=== PATIENT | female | born 1950 ===

== ENCOUNTER 2018-09-15 05:53 | Inpatient (IN) | payer MEDICAID ==
--- NOTE | 2018-09-15 05:54 | C.PDOC ---
History Of Present Illness pt found outside near a tree. Pt is confused and does not know Unable to obtain any history from pt. how she got there. police present Time Seen by Provider: 09/15/18 05:54 History Per: Other (police, ems) History/Exam Limitations: clinical condition Onset/Duration Of Symptoms: Unknown Current Symptoms Are (Timing): Still Present Severity: Severe Pain Scale Rating Of: 8 Past Medical History Reviewed: Historical Data, Nursing Documentation, Vital Signs Family History: States: No Known Family Hx Review Of Systems Review Of Systems: ROS cannot be obtained secondary to pt's inabilty to answer questions. Physical Exam - Physical Exam Appears: Non-toxic Skin: Other (colf, abrasions, nose, forehead, right cheek) Head: Tenderness (mild, no crepitus) Eye(s): bilateral: Normal Inspection, EOMI Ear(s): Bilateral: Normal Nose: No Septal Hematoma Oral Mucosa: Dry Tongue: Normal Appearing Lips: Swelling, Abrasion Neck: No Step Off Deformity, Supple Chest: Symmetrical Cardiovascular: Rhythm Regular Respiratory: No Rales, No Rhonchi, No Wheezing Gastrointestinal/Abdominal: Soft, No Tenderness, No Distention Back: No CVA Tenderness Extremity: Normal ROM, Other (abrasions both knees) Extremity: Bilateral: Normal ROM Pulses: Left Dorsalis Pedis: Normal, Right Dorsalis Pedis: Normal Neurological/Psych: Other (aaox2, confused, moves all extremities) Disoriented To: Person, Place Gait: Unable To Assess ED Course And Treatment - Laboratory Results Result Diagrams: 09/15/18 06:22 09/15/18 06:22 ECG: Interpreted By Me, Viewed By Me O2 Sat by Pulse Oximetry: 98 Pulse Ox Interpretation: Normal - Radiology CXR: Interpreted by Me, Viewed By Me CXR Interpretation: No: Infiltrates, Fracture, Pnemothorax Progress Note: placed pt on a adolfo blankest as rectal temp is 91F Critical Care Time - Critical Care Note Total Time (in mins): 30 Documented critical care: time excludes all time spent performing seperately billable procedures. Disposition Counseled Patient/Family Regarding: Studies Performed, Diagnosis - Disposition Disposition Time: 07:00 Condition: FAIR - Clinical Impression Clinical Impression: Fall, Hypothermia Physician Patient Turnover Patient Signed Over To: Yadiel Mccabe Handoff Comments: pending labs, ct scans and dispo
[2018-09-15] MEDS ORDERED: Sodium Chloride 0.9% 1,000 ML IV ONE (05:58)
[2018-09-15 06:05] VITALS: BMI 28.3
[2018-09-15 06:31] LABS: BASO % 0.2 % (0.0-2.0); EOS % 0.2 % (0.0-4.0); HEMOGLOBIN 13.3 g/dL (11.0-16.0); LYMPH # 1.9 K/uL (1.0-4.3); MEAN CELL VOLUME 87.2 fL (81.0-99.0); MEAN CORPUSCULAR HEMOGLOBIN 27.4 pg (27.0-31.0); MEAN CORPUSCULAR HGB CONC 31.4 g/dL (33.0-37.0); MEAN PLATELET VOLUME 7.9 fL (7.2-11.7); MONO # 0.6 K/uL (0.0-0.8); MONO % 3.5 % (0.0-10.0); NEUT # 13.5 K/uL (1.8-7.0); NEUT % 84.1 % (50.0-75.0); RBC 4.86 Mil/uL (3.80-5.20); RED CELL DISTRIBUTION WIDTH 15.5 % (11.5-14.5); WHITE BLOOD COUNT 16.1 K/uL (4.8-10.8)
[2018-09-15 06:33] LABS: VENOUS BLOOD GAS BASE EXCESS -12.4 mmol/L (0.0-2.0); VENOUS BLOOD GAS PCO2 31 mmHg (40-60); VENOUS BLOOD GAS PO2 44 mm/Hg (30-55); VENOUS BLOOD PH 7.25 (7.32-7.43)
[2018-09-15 06:39] LABS: ALB/GLOB RATIO 1.1 (1.0-2.1); ALBUMIN 4.5 g/dL (3.5-5.0); ALT/SGPT 15 U/L (9-52); AST/SGOT 36 U/L (14-36); BLOOD UREA NITROGEN 14 mg/dL (7-17); CALCIUM 9.8 mg/dl (8.6-10.4); GFR NON-AFRICAN AMERICAN > 60; INR 1.1; LIPASE 121 U/L (23-300); PROTHROMBIN TIME 11.5 SECONDS (9.7-12.2)
--- NOTE | 2018-09-15 08:34 | CT ---
Date of service: 09/15/2018 PROCEDURE: CT HEAD WITHOUT CONTRAST. HISTORY: R/O Bleed COMPARISON: None available. TECHNIQUE: Axial computed tomography images were obtained through the head/brain without intravenous contrast. Radiation dose: Total exam DLP = 1061.42 mGy-cm. This CT exam was performed using one or more of the following dose reduction techniques: Automated exposure control, adjustment of the mA and/or kV according to patient size, and/or use of iterative reconstruction technique. FINDINGS: HEMORRHAGE: There is acute subdural hematoma along the right tentorial leaflet with maximum thickness of 0.2 centimeter. BRAIN: No mass effect or edema. Mild volume loss and [id number] chronic microvascular white matter ischemic changes are noted. VENTRICLES: The ventricles are mildly dilated. CALVARIUM: Unremarkable. PARANASAL SINUSES: Unremarkable as visualized. No significant inflammatory changes. MASTOID AIR CELLS: Unremarkable as visualized. No inflammatory changes. OTHER FINDINGS: None. IMPRESSION: Acute subdural hematoma along the right tentorial leaflet with maximum thickness of 0.2 centimeter. Mild volume loss and mild chronic microvascular white matter ischemic changes. Preliminary report contains concordant findings was submitted by [facility] Radiology.
--- NOTE | 2018-09-15 08:55 | CT ---
Date of service: 09/15/2018 PROCEDURE: CT Cervical Spine without contrast HISTORY: fall COMPARISON: None available. TECHNIQUE: Axial computed tomography images were obtained of the cervical spine without the use of intravenous contrast. Coronal and sagittal reformatted images were created and reviewed. 3D images of the cervical spine were also obtained. Radiation dose: Total exam DLP = 590.46 mGy-cm. This CT exam was performed using one or more of the following dose reduction techniques: Automated exposure control, adjustment of the mA and/or kV according to patient size, and/or use of iterative reconstruction technique. FINDINGS: VERTEBRAE: No fracture. Normal alignment. No destructive bony lesion. DISCS/SPINAL CANAL/NEURAL FORAMINA: Mild spondylosis noted at the mid and lower cervical spine more prominent at C5-C6. At C5-C6 there is osteophyte bulging disc associated with mild spinal stenosis. Mild intervertebral disc spaces narrowing noted at C5-C6 and C6-C7. PARASPINAL SOFT TISSUES: Unremarkable. OTHER FINDINGS: Small left mastoid effusion is noted. IMPRESSION: No CT evidence of acute displaced fracture or acute traumatic subluxation in the cervical spine. Mild spondylosis more prominent at C5-C6.
--- NOTE | 2018-09-15 09:22 | CT ---
Date of service: 09/15/2018 PROCEDURE: CT ORBITS WITHOUT CONTRAST. HISTORY: ? fall COMPARISON: None available. TECHNIQUE: Axial CT images of the orbits were obtained. Coronal and sagittal reformats were generated. Radiation dose: Total exam DLP = 748.24 mGy-cm. This CT exam was performed using one or more of the following dose reduction techniques: Automated exposure control, adjustment of the mA and/or kV according to patient size, and/or use of iterative reconstruction technique. FINDINGS: RIGHT ORBIT: RIGHT BONY ORBIT: Normal. RIGHT INTRAORBITAL STRUCTURES: Globe: Normal. Extraocular muscles: Normal. Post septal space: Normal. Optic Nerve: Normal. Lacrimal Apparatus: Normal. RIGHT PRESEPTAL SOFT TISSUES: Mild to moderate right periorbital soft tissue swelling and preseptal soft tissue edema and posttraumatic changes. LEFT ORBIT: LEFT BONY ORBIT: Normal. LEFT INTRAORBITAL STRUCTURES: Globe: Normal. Extraocular muscles: Normal. Post septal space: Normal Optic Nerve: Normal. . Lacrimal Apparatus: Normal. LEFT PRESEPTAL SOFT TISSUES: Normal. OTHER: Age indeterminate nasal bone fracture may be old. IMPRESSION: No evidence of orbital fracture. Right periorbital and preseptal soft tissue swelling. Preliminary report contains concordant findings was submitted by [facility] Radiology.
--- NOTE | 2018-09-15 10:27 | RAD ---
HISTORY: SOB COMPARISON: None available. TECHNIQUE: Chest, one view. FINDINGS: Examination limited by habitus and hypoinflation. Patient's chin obscures evaluation of the lung apices. LUNGS: No focal consolidation. Please note that chest x-ray has limited sensitivity for the detection of pulmonary masses. PLEURA: No significant pleural effusion identified. No definite pneumothorax . CARDIOVASCULAR: Heart size appears top normal. Atherosclerotic calcifications of the aorta. OSSEOUS STRUCTURES: Osseous demineralization. Degenerative changes. VISUALIZED UPPER ABDOMEN: Unremarkable. OTHER FINDINGS: None. IMPRESSION: No focal consolidation.
[2018-09-15 10:37] LABS: SQUAMOUS EPITHIAL < 1 /hpf (0-5); URINE BACTERIA OCC (<OCC); URINE BILIRUBIN NEGATIVE (NEGATIVE); URINE BLOOD NEGATIVE (NEGATIVE); URINE CLARITY Clear (Clear); URINE COLOR Yellow (YELLOW); URINE GLUCOSE (UA) NORMAL (Normal); URINE LEUKOCYTE ESTERASE TRACE Leu/uL (Negative); URINE PROTEIN NEGATIVE (NEGATIVE); URINE UROBILINOGEN NORMAL mg/dL (0.2-1.0)
--- NOTE | 2018-09-15 11:18 | CP.PCM.CON ---
<Kyler Bettencourt - Last Filed: 09/15/18 18:24> History of Present Illness - History of Present Illness History of Present Illness: Consult Note for ICU for Dr. Horner This is a 68 y o female with PMhx hypothyroidism, dementia, HLD, DM2 who presented to the ED brought in by police after being found outside near a tree. Pt was confused at time of ED presentation, and unable to provide further hx or ROS. Per pt's [id number] she states that pt has been living at home with pt's daughter and family, and that they were unable to find patient this am. Pt's grandson at bedside states that he woke up at 5 am this morning and noticed that pt had ran away from home. Unknown amount of time pt was outside of house before being found. States they went to police station this am to report her missing and they were told that she was being treated at [facility]. Reports pt has been living at home with them for the past 2 years, having previously lived in the [place]. Reports prior times she left home but states they usually place alarms on to notify if she tries to leave home, but that the alarms did not go off this time. Pt on exam currently denies any acute complaints except for the skin excoriations sustained on her face that she presented with on admission, unknown mechanism of injury. Unable to obtain further ROS due to pt's current mental status. Reason for ICU consult was for s ubdural hematoma. PMhx: hypothyroidism, dementia, HLD, DM2 PSurgHx: thyroidectomy < 1 y ago Allergies: PCN (unknown reaction) Home meds: reviewed as per [facility] hx: denies Soc hx: denies smoking, EtOH or illicit drug use PMD: Dr. Lou ([place]) Review of Systems - Review of Systems Systems not reviewed;Unavailable: Altered Mental Status Past Patient History - Infectious Disease Hx of Infectious Diseases: None - Past Medical History & Family History Past Medical History?: Yes - Past Social History Smoking Status: Unknown If Ever Smoked - CARDIAC Hx Hypercholesterolemia: Yes - PULMONARY Hx Respiratory Disorders: No - NEUROLOGICAL Hx Neurological Disorder: Yes Hx Alzheimer's Disease: Yes Hx Dementia: Yes - HEENT Hx HEENT Problems: No - RENAL Hx Chronic Kidney Disease: No - ENDOCRINE/METABOLIC Hx Endocrine Disorders: Yes Hx Diabetes Mellitus Type 2: Yes Hx Hypothyroidism: Yes - HEMATOLOGICAL/ONCOLOGICAL Hx Blood Disorders: No - INTEGUMENTARY Hx Dermatological Problems: No - MUSCULOSKELETAL/RHEUMATOLOGICAL Hx Musculoskeletal Disorders: No Hx Falls: Yes Hx Unsteady Gait: Yes - GASTROINTESTINAL Hx Gastrointestinal Disorders: No - GENITOURINARY/GYNECOLOGICAL Hx Genitourinary Disorders: No - PSYCHIATRIC Hx Psychophysiologic Disorder: No Hx Substance Use: No - SURGICAL HISTORY Hx Surgeries: Yes Hx Parathyroidectomy: Yes - ANESTHESIA Hx Anesthesia: Yes Hx Anesthesia Reactions: No Hx Malignant Hyperthermia: No Has any member of the family had a problem w/ anesthesia?: No Meds Allergies/Adverse Reactions: Allergies Allergy/AdvReac Type Severity Reaction Status Date / Time Penicillins Allergy Verified 09/15/18 06:40 Physical Exam - Constitutional Appears: Non-toxic, No Acute Distress - Head Exam Head Exam: ATRAUMATIC, NORMOCEPHALIC - Eye Exam Eye Exam: EOMI, Normal appearance, PERRL - ENT Exam ENT Exam: Mucous Membranes Moist - Respiratory Exam Respiratory Exam: Clear to Auscultation Bilateral, NORMAL BREATHING PATTERN. absent: Rales, Rhonchi, Wheezes - Cardiovascular Exam Cardiovascular Exam: REGULAR RHYTHM, +S1, +S2. absent: Gallop, Rubs, Systolic Murmur - GI/Abdominal Exam GI & Abdominal Exam: Normal Bowel Sounds, Soft. absent: Distended, Organomegaly, Tenderness - Extremities Exam Extremities exam: Positive for: normal capillary refill, normal inspection, pedal pulses present. Negative for: pedal edema - Neurological Exam Neurological exam: Alert Additional comments: AAOx2 - Skin Skin Exam: Dry, Intact, Warm Additional comments: Excoriations present on face, dry, no active bleeding Results - Vital Signs Recent Vital Signs: Last Vital Signs Temp 97.6 F 09/15/18 08:24 Pulse 83 09/15/18 09:25 Resp 18 09/15/18 09:25 BP 155/67 H 09/15/18 09:25 Pulse Ox 100 09/15/18 09:25 - Labs Result Diagrams: 09/15/18 06:22 09/15/18 06:22 Labs: Laboratory Results - last 24 hr 09/15/18 09/15/18 09/15/18 06:05 06:20 06:22 WBC 16.1 H RBC 4.86 Hgb 13.3 Hct 42.4 MCV 87.2 MCH 27.4 MCHC 31.4 L RDW 15.5 H Plt Count 321 MPV 7.9 Neut % (Auto) 84.1 H Lymph % (Auto) 12.0 L [place] % (Auto) 3.5 Eos % (Auto) 0.2 Baso % (Auto) 0.2 Neut # (Auto) 13.5 H Lymph # (Auto) 1.9 [place] # (Auto) 0.6 Eos # (Auto) 0.0 Baso # (Auto) 0.0 PT INR APTT pO2 44 VBG pH 7.25 L VBG pCO2 31 L VBG HCO3 14.5 VBG Total CO2 14.6 L VBG O2 Sat (Calc) 79.7 H VBG Base Excess -12.4 L VBG Potassium 2.4 L* Sodium 143.0 Chloride 121.0 H Glucose 104 Lactate 3.6 H Blood Gas Comments K value 2.4 Crit Value Called To Crit Value Called By Horace tavera Crit Value Read Back Y Blood Gas Notified Time 632 Potassium Carbon Dioxide Anion Gap BUN Creatinine Est GFR ( Amer) Est GFR (Non-Af Amer) POC Glucose (mg/dL) 164 H Random Glucose Calcium Magnesium Total Bilirubin AST ALT Alkaline Phosphatase Total Protein Albumin Globulin Albumin/Globulin Ratio Lipase Venous Blood Potassium 2.4 L* Urine Color Urine Clarity Urine pH Ur Specific [place] Urine Protein Urine Glucose (UA) Urine Ketones Urine Blood Urine Nitrate Urine Bilirubin Urine Urobilinogen Ur Leukocyte Esterase Urine WBC (Auto) Urine RBC (Auto) Ur Squamous Epith Cells Urine Bacteria 09/15/18 09/15/18 09/15/18 06:22 06:22 10:12 WBC RBC Hgb Hct MCV MCH MCHC RDW Plt Count MPV Neut % (Auto) Lymph % (Auto) [place] % (Auto) Eos % (Auto) Baso % (Auto) Neut # (Auto) Lymph # (Auto) [place] # (Auto) Eos # (Auto) Baso # (Auto) PT 11.5 INR 1.1 APTT 27 pO2 VBG pH VBG pCO2 VBG HCO3 VBG Total CO2 VBG O2 Sat (Calc) VBG Base Excess VBG Potassium Sodium 140 Chloride 104 Glucose Lactate Blood Gas Comments Crit Value Called To Crit Value Called By Crit Value Read Back Blood Gas Notified Time Potassium 4.5 Carbon Dioxide 23 Anion Gap 17 BUN 14 Creatinine 0.7 Est GFR ( Amer) > 60 Est GFR (Non-Af Amer) > 60 POC Glucose (mg/dL) Random Glucose 162 H Calcium 9.8 Magnesium 1.8 Total Bilirubin 0.5 AST 36 ALT 15 Alkaline Phosphatase 175 H Total Protein 8.4 H Albumin 4.5 Globulin 4.0 H Albumin/Globulin Ratio 1.1 Lipase 121 Venous Blood Potassium Urine Color Yellow Urine Clarity Clear Urine pH 5.0 Ur Specific [place] 1.009 Urine Protein Negative Urine Glucose (UA) Normal Urine Ketones Negative Urine Blood Negative Urine Nitrate Positive H Urine Bilirubin Negative Urine Urobilinogen Normal Ur Leukocyte Esterase Trace Urine WBC (Auto) 3 Urine RBC (Auto) 1 Ur Squamous Epith Cells < 1 Urine Bacteria Occ H Assessment & Plan - Assessment and Plan (Free Text) Assessment: This is a 68 y o female with PMhx hypothyroidism, dementia, HLD, DM2 who presented to the ED brought in by police after being found outside near a tree. Reason for ICU consult was for subdural hematoma. Plan: Neuro: -AAOx2 -CT head on admission: acute subdural hematoma along R tentorial leaflet with maximum thickness of 0.2 cm. -Repeat head CT: interval slight increased the size of the acute subdural hematoma along the R tentorial leaflet since the prior exam. Otherwise no significant interval changes -Neurosurgery consulted (Dr. Will), recs appreciated No surgical intervention recommended at this time -Neurology consulted (Dr. Penn), recs appreciated -Hx dementia, cont w/ home med Donepezil Cardio: -HR and BP wnl, pt asymptomatic, cont to monitor -C/w home med Lisinopril daily -C/w home med statin therapy -EKG on admission demonstrates NSR, possible LVH, prolonged QT -CXR on admission: no focal consolidation GI: -Diabetic diet -Protonix daily -No acute issues at this time Renal: -BUN/Cr 14/0.7, cont to monitor -Trend I's/O's ID: -Leukocytosis 16.1 -Afebrile, no tachycardia -Cont to trend, no anbx indicated at this time -Blood and urine cxs pending -CXR neg for consolidation Endo: -Hx DM2 Cont with home med Metformin ISS-med Fingersticks achs Hypoglycemic protocol A1c pending -Hx hypothyroidism s/p thyroidectomy C/w home med Synthroid TSH, free T3 and T4 pending PPX: -Protonix -SCD, pharmacologic DVT ppx contraindicated 2/2 cranial bleed -OT/PT evals ordered Pt seen, examined with, and plan discussed with Dr. Horner, attending physician. Kyler Bettencourt DO PGY-1, Tape Transfer[employer] Pager #[phone] <RajChoco nguyen - Last Filed: 09/21/18 23:08> Results - Vital Signs Recent Vital Signs: Last Vital Signs Temp 97.1 F L 09/21/18 07:00 Pulse 63 09/21/18 07:00 Resp 20 09/21/18 07:00 BP 102/61 09/21/18 07:00 Pulse Ox 97 09/21/18 07:00 - Labs Result Diagrams: 09/20/18 07:15 09/20/18 07:15 Labs: Laboratory Results - last 24 hr 09/21/18 09/21/18 07:02 11:08 POC Glucose (mg/dL) 105 108 Attending/Attestation - Attestation I have personally seen and examined this patient.: Yes I have fully participated in the care of the patient.: Yes I have reviewed all pertinent clinical information: Yes Notes (Text): 09/15/18 Today: Saturday, September 15, 2018 The Patient was seen and examined at the bedside, Medical records reviewed, and management issues were discussed and formulated with the house staff. I have reviewed all the relevant clinical, laboratory, hemodynamic, radiographic data and medications Events reviewed Pain issues, skin care, head of the bed elevation, glycemic control were addressed. Agree with above resident's assessment and treatment plans of care as transcribed in Dr. Bettencourt's note.
--- NOTE | 2018-09-15 13:56 | CP.PCM.PN ---
Subjective - Date & Time of Evaluation Date of Evaluation: 09/15/18 Time of Evaluation: 13:55 - Subjective Subjective: 68 yo female with hx dementia had fall ct this am showed small amount of blood layoring on right tent and falx repeat shows no significant change Pt will not require any surgical intervention further [place] per neurology Objective - Vital Signs/Intake and Output Vital Signs (last 24 hours): Temp Pulse Resp BP Pulse Ox 97.6 F 83 18 155/67 H 100 09/15/18 08:24 09/15/18 09:25 09/15/18 09:25 09/15/18 09:25 09/15/18 09:25 Intake and Output: 09/15/18 09/15/18 06:59 18:59 Output Total 380 Balance -380 - Labs Labs: 09/15/18 06:22 09/15/18 06:22 PT 11.5 SECONDS (9.7-12.2) 09/15/18 06:22 INR 1.1 09/15/18 06:22 APTT 27 SECONDS (21-34) 09/15/18 06:22
--- NOTE | 2018-09-15 14:23 | CT ---
Date of service: 09/15/2018 PROCEDURE: CT HEAD WITHOUT CONTRAST. HISTORY: eval for interval change COMPARISON: Comparison is made with the previous same-day exam. TECHNIQUE: Axial computed tomography images were obtained through the head/brain without intravenous contrast. Radiation dose: Total exam DLP = 998.66 mGy-cm. This CT exam was performed using one or more of the following dose reduction techniques: Automated exposure control, adjustment of the mA and/or kV according to patient size, and/or use of iterative reconstruction technique. FINDINGS: HEMORRHAGE: Interval slight increase in the size of the previously seen acute subdural hematoma along the right tentorial leaflet since the prior study. The maximum thickness of the subdural hematoma is 4 millimeter in the current exam. No evidence of other intracranial hemorrhage. BRAIN: No mass effect or edema. Mild atrophy and chronic microvascular white matter ischemic changes are again noted. VENTRICLES: Unremarkable. No hydrocephalus. CALVARIUM: Unremarkable. PARANASAL SINUSES: Unremarkable as visualized. No significant inflammatory changes. MASTOID AIR CELLS: Unremarkable as visualized. No inflammatory changes. OTHER FINDINGS: None. IMPRESSION: Interval slight increased the size of the acute subdural hematoma along the right tentorial leaflet since the prior exam. Otherwise no significant interval changes
--- NOTE | 2018-09-15 19:27 | CARD ---
APPROVED REPORT Date of service: 09/15/2018 EKG Measurement Heart [id number] <Conclusion> Normal sinus rhythm Moderate voltage criteria for LVH, may be normal variant ST & T wave abnormality, consider anterolateral ischemia Prolonged QT Abnormal ECG
--- NOTE | 2018-09-15 20:04 | CP.PCM.HP ---
Past Patient History - Infectious Disease Hx of Infectious Diseases: None - Past Medical History & Family History Past Medical History?: Yes - Past Social History Smoking Status: Unknown If Ever Smoked - CARDIAC Hx Hypercholesterolemia: Yes - PULMONARY Hx Respiratory Disorders: No - NEUROLOGICAL Hx Neurological Disorder: Yes Hx Alzheimer's Disease: Yes Hx Dementia: Yes - HEENT Hx HEENT Problems: No - RENAL Hx Chronic Kidney Disease: No - ENDOCRINE/METABOLIC Hx Endocrine Disorders: Yes Hx Diabetes Mellitus Type 2: Yes Hx Hypothyroidism: Yes - HEMATOLOGICAL/ONCOLOGICAL Hx Blood Disorders: No - INTEGUMENTARY Hx Dermatological Problems: No - MUSCULOSKELETAL/RHEUMATOLOGICAL Hx Musculoskeletal Disorders: No Hx Falls: Yes Hx Unsteady Gait: Yes - GASTROINTESTINAL Hx Gastrointestinal Disorders: No - GENITOURINARY/GYNECOLOGICAL Hx Genitourinary Disorders: No - PSYCHIATRIC Hx Psychophysiologic Disorder: No Hx Substance Use: No - SURGICAL HISTORY Hx Surgeries: Yes Hx Parathyroidectomy: Yes - ANESTHESIA Hx Anesthesia: Yes Hx Anesthesia Reactions: No Hx Malignant Hyperthermia: No Has any member of the family had a problem w/ anesthesia?: No Meds Allergies/Adverse Reactions: Allergies Allergy/AdvReac Type Severity Reaction Status Date / Time Penicillins Allergy Verified 09/15/18 06:40 Physical Exam - Constitutional Appears: Well - Head Exam Head Exam: ATRAUMATIC, NORMAL INSPECTION, NORMOCEPHALIC - Eye Exam Eye Exam: EOMI, Normal appearance, PERRL Pupil Exam: NORMAL ACCOMODATION, PERRL - ENT Exam ENT Exam: Mucous Membranes Moist, Normal Exam - Neck Exam Neck exam: Positive for: Normal Inspection - Respiratory Exam Respiratory Exam: Decreased Breath Sounds - Cardiovascular Exam Cardiovascular Exam: REGULAR RHYTHM, +S1, +S2 - GI/Abdominal Exam GI & Abdominal Exam: Diminished Bowel Sounds, Soft - Rectal Exam Rectal Exam: Deferred Results - Vital Signs Recent Vital Signs: Last Vital Signs Temp 99.4 F 09/15/18 16:00 Pulse 88 09/15/18 17:57 Resp 20 09/15/18 17:57 BP 111/39 L 09/15/18 17:57 Pulse Ox 95 09/15/18 17:57 - Labs Result Diagrams: 09/15/18 06:22 09/15/18 06:22 Labs: Laboratory Results - last 24 hr 09/15/18 09/15/18 09/15/18 06:05 06:20 06:22 WBC 16.1 H RBC 4.86 Hgb 13.3 Hct 42.4 MCV 87.2 MCH 27.4 MCHC 31.4 L RDW 15.5 H Plt Count 321 MPV 7.9 Neut % (Auto) 84.1 H Lymph % (Auto) 12.0 L [place] % (Auto) 3.5 Eos % (Auto) 0.2 Baso % (Auto) 0.2 Neut # (Auto) 13.5 H Lymph # (Auto) 1.9 [place] # (Auto) 0.6 Eos # (Auto) 0.0 Baso # (Auto) 0.0 PT INR APTT pO2 44 VBG pH 7.25 L VBG pCO2 31 L VBG HCO3 14.5 VBG Total CO2 14.6 L VBG O2 Sat (Calc) 79.7 H VBG Base Excess -12.4 L VBG Potassium 2.4 L* Sodium 143.0 Chloride 121.0 H Glucose 104 Lactate 3.6 H Blood Gas Comments K value 2.4 Crit Value Called To Crit Value Called By Horace tavera Crit Value Read Back Y Blood Gas Notified Time 632 Potassium Carbon Dioxide Anion Gap BUN Creatinine Est GFR ( Amer) Est GFR (Non-Af Amer) POC Glucose (mg/dL) 164 H Random Glucose Calcium Magnesium Total Bilirubin AST ALT Alkaline Phosphatase Total Protein Albumin Globulin Albumin/Globulin Ratio Lipase Venous Blood Potassium 2.4 L* Urine Color Urine Clarity Urine pH Ur Specific [place] Urine Protein Urine Glucose (UA) Urine Ketones Urine Blood Urine Nitrate Urine Bilirubin Urine Urobilinogen Ur Leukocyte Esterase Urine WBC (Auto) Urine RBC (Auto) Ur Squamous Epith Cells Urine Bacteria 09/15/18 09/15/18 09/15/18 06:22 06:22 10:12 WBC RBC Hgb Hct MCV MCH MCHC RDW Plt Count MPV Neut % (Auto) Lymph % (Auto) [place] % (Auto) Eos % (Auto) Baso % (Auto) Neut # (Auto) Lymph # (Auto) [place] # (Auto) Eos # (Auto) Baso # (Auto) PT 11.5 INR 1.1 APTT 27 pO2 VBG pH VBG pCO2 VBG HCO3 VBG Total CO2 VBG O2 Sat (Calc) VBG Base Excess VBG Potassium Sodium 140 Chloride 104 Glucose Lactate Blood Gas Comments Crit Value Called To Crit Value Called By Crit Value Read Back Blood Gas Notified Time Potassium 4.5 Carbon Dioxide 23 Anion Gap 17 BUN 14 Creatinine 0.7 Est GFR ( Amer) > 60 Est GFR (Non-Af Amer) > 60 POC Glucose (mg/dL) Random Glucose 162 H Calcium 9.8 Magnesium 1.8 Total Bilirubin 0.5 AST 36 ALT 15 Alkaline Phosphatase 175 H Total Protein 8.4 H Albumin 4.5 Globulin 4.0 H Albumin/Globulin Ratio 1.1 Lipase 121 Venous Blood Potassium Urine Color Yellow Urine Clarity Clear Urine pH 5.0 Ur Specific [place] 1.009 Urine Protein Negative Urine Glucose (UA) Normal Urine Ketones Negative Urine Blood Negative Urine Nitrate Positive H Urine Bilirubin Negative Urine Urobilinogen Normal Ur Leukocyte Esterase Trace Urine WBC (Auto) 3 Urine RBC (Auto) 1 Ur Squamous Epith Cells < 1 Urine Bacteria Occ H
[2018-09-15] MEDS: (Novolin R) Insulin Human Regular 100 units/ml vial SC SCH (22:43)
[2018-09-16 06:26] LABS: BASO % 0.7 % (0.0-2.0); EOS # 0.1 K/uL (0.0-0.7); EOS % 1.2 % (0.0-4.0); LYMPH # 1.9 K/uL (1.0-4.3); LYMPH % 31.7 % (20.0-40.0); MEAN CELL VOLUME 85.9 fL (81.0-99.0); MEAN CORPUSCULAR HEMOGLOBIN 27.9 pg (27.0-31.0); MEAN CORPUSCULAR HGB CONC 32.5 g/dL (33.0-37.0); MONO # 0.5 K/uL (0.0-0.8); MONO % 7.8 % (0.0-10.0); NEUT # 3.5 K/uL (1.8-7.0); NEUT % 58.6 % (50.0-75.0); RBC 4.3 Mil/uL (3.80-5.20); RED CELL DISTRIBUTION WIDTH 15.2 % (11.5-14.5); WHITE BLOOD COUNT 5.9 K/uL (4.8-10.8)
[2018-09-16 07:05] LABS: ALBUMIN 3.7 g/dL (3.5-5.0); ALT/SGPT 24 U/L (9-52); AST/SGOT 36 U/L (14-36); BLOOD UREA NITROGEN 11 mg/dL (7-17); CALCIUM 9.2 mg/dl (8.6-10.4); GFR NON-AFRICAN AMERICAN > 60
[2018-09-16] MEDS: Levothyroxine 125 MCG TAB PO SCH (08:25)
[2018-09-16] MEDS: (Novolin R) Insulin Human Regular 100 units/ml vial SC SCH ×4 (08:25→22:21)
--- NOTE | 2018-09-16 09:38 | CP.CCUPN ---
CCU Subjective - Physician Review Subjective (Free Text): ICU Progress Note for Dr. Zuniga Pt seen and examined at bedside this am. Denies any acute complaints. Unable to obtain ROS due to pt's current mental status. No acute events reported overnight by staff. Repeat CT head ordered for this am. CCU Objective - Vital Signs / Intake & Output Vital Signs (Last 4 hours): Vital Signs Temp Pulse Resp BP Pulse Ox 09/16/18 08:00 98.1 F 57 L 17 100 09/16/18 07:57 57 L 19 128/48 L 97 09/16/18 07:00 54 L 15 100 09/16/18 06:58 56 L 17 113/63 100 09/16/18 06:57 57 L 17 100 09/16/18 06:00 59 L 16 100 09/16/18 05:57 144/59 L Intake and Output (Last 8hrs): Intake & Output 09/15/18 09/16/18 09/16/18 22:59 06:59 14:59 Intake Total 290 350 120 Output Total 575 350 0 Balance -285 0 120 Intake: Intake, IV Amount 0 350 Left Antecubital 0 0 Right Forearm 0 350 Oral 290 120 Output: Urine 575 350 0 Urethral (Samson) 575 Urine, Voided 0 350 0 Other: # Voids Urine, Voided 1 - Physical Exam Head: Positive for: Atraumatic, Normocephalic, Abrasion (Abrasion noted to face around nares and forehead, no active bleeding) Pupils: Positive for: PERRL Extroacular Muscles: Positive for: EOMI Conjunctiva: Positive for: Normal Mouth: Positive for: Moist Mucous Membranes Neck: Positive for: Normal Range of Motion. Negative for: JVD, Lymphadenopathy Respiratory/Chest: Positive for: Clear to Auscultation, Good Air Exchange. Negative for: Respiratory Distress, Accessory Muscle Use, Wheezes, Rales, R etracting Cardiovascular: Positive for: Regular Rate and Rhythm, Normal S1, S2. Negative for: Murmurs, Rub, Gallop Abdomen: Positive for: Normal Bowel Sounds. Negative for: Tenderness, Distention, Mass/Organomegaly Upper Extremity: Positive for: Normal Inspection, NORMAL PULSES, Neurovascularly Intact, Capillary Refill < 2s. Negative for: Cyanosis, Edema Lower Extremity: Positive for: Normal Inspection, NORMAL PULSES, Neurovascularly Intact, Capillary Refill < 2 s. Negative for: Edema Neurological: Positive for: GCS=15, CN II-XII Intact Skin: Positive for: Warm, Dry, Normal Color Psychiatric: Positive for: Alert, Oriented x 3 - Medications Active Medications: Active Medications Generic Name Dose Route Start Last Admin Trade Name Freq PRN Reason Stop Dose Admin Donepezil HCl 10 mg 09/15/18 22:00 09/15/18 22:22 Aricept PO 10 mg HS [facility] Administration Insulin Human Regular 0 unit 09/15/18 22:00 09/16/18 08:25 Novolin R SC Not Given ACHS [facility] Protocol Levothyroxine Sodium 125 mcg 09/16/18 06:30 09/16/18 08:25 Synthroid PO 125 mcg DAILY@0630 [facility] Administration Lisinopril 2.5 mg 09/15/18 17:00 09/15/18 18:11 Zestril PO Not Given DAILY [facility] Metformin HCl 500 mg 09/15/18 17:00 Glucophage PO DIN [facility] Pantoprazole Sodium 40 mg 09/16/18 10:00 Protonix Ec Tab PO DAILY [facility] Rosuvastatin Calcium 20 mg 09/15/18 22:00 09/15/18 22:22 Crestor PO 20 mg HS [facility] Administration - Patient Studies Lab Studies: Microbiology Studies 09/15/18 07:18 Blood Culture - Preliminary Blood NO GROWTH AFTER 24 HOURS 09/15/18 07:18 Blood Culture - Preliminary Blood NO GROWTH AFTER 24 HOURS Lab Studies 09/16/18 09/16/18 09/16/18 Range/Units 06:19 06:19 06:19 WBC (4.8-10.8) K/uL RBC (3.80-5.20) Mil/uL Hgb (11.0-16.0) g/dL Hct (34.0-47.0) % MCV (81.0-99.0) fL MCH (27.0-31.0) pg MCHC (33.0-37.0) g/dL RDW (11.5-14.5) % Plt Count (130-400) K/uL MPV (7.2-11.7) fL Neut % (Auto) (50.0-75.0) % Lymph % (Auto) (20.0-40.0) % [place] % (Auto) (0.0-10.0) % Eos % (Auto) (0.0-4.0) % Baso % (Auto) (0.0-2.0) % Neut # (Auto) (1.8-7.0) K/uL Lymph # (Auto) (1.0-4.3) K/uL [place] # (Auto) (0.0-0.8) K/uL Eos # (Auto) (0.0-0.7) K/uL Baso # (Auto) (0.0-0.2) K/uL Sodium 137 (132-148) mmol/L Potassium 3.6 (3.6-5.2) mmol/L Chloride 106 (98-107) mmol/L Carbon Dioxide 27 (22-30) mmol/L Anion Gap 7 L (10-20) BUN 11 (7-17) mg/dL Creatinine 0.7 (0.7-1.2) mg/dL Est GFR ( Amer) > 60 Est GFR (Non-Af Amer) > 60 Random Glucose 106 H D (65-105) mg/dL Hemoglobin A1c 6.4 (4.2-6.5) % Calcium 9.2 (8.6-10.4) mg/dl Phosphorus 4.3 (2.5-4.5) mg/dL Magnesium 2.0 (1.6-2.3) mg/dL Total Bilirubin 0.9 (0.2-1.3) mg/dL AST 36 (14-36) U/L ALT 24 (9-52) U/L Alkaline Phosphatase 134 H D (38-126) U/L Total Protein 7.3 (6.3-8.3) g/dL Albumin 3.7 (3.5-5.0) g/dL Globulin 3.6 (2.2-3.9) gm/dL Albumin/Globulin Ratio 1.0 (1.0-2.1) Free T4 1.56 (0.78-2.19) ng/dL Free T3 pg/mL 3.33 (2.77-5.27) pg/mL TSH 3rd Generation 0.11 L (0.46-4.68) mIU/L Urine Color (YELLOW) Urine Clarity (Clear) Urine pH (5.0-8.0) Ur Specific [place] (1.003-1.030) Urine Protein (NEGATIVE) mg/dL Urine Glucose (UA) (Normal) mg/dL Urine Ketones (NEGATIVE) mg/dL Urine Blood (NEGATIVE) Urine Nitrate (NEGATIVE) Urine Bilirubin (NEGATIVE) Urine Urobilinogen (0.2-1.0) mg/dL Ur Leukocyte Esterase (Negative) [place]/uL Urine WBC (Auto) (0-5) /hpf Urine RBC (Auto) (0-3) /hpf Ur Squamous Epith Cells (0-5) /hpf Urine Bacteria (<OCC) 09/16/18 09/15/18 Range/Units 06:19 10:12 WBC 5.9 D (4.8-10.8) K/uL RBC 4.30 (3.80-5.20) Mil/uL Hgb 12.0 (11.0-16.0) g/dL Hct 36.9 (34.0-47.0) % MCV 85.9 (81.0-99.0) fL MCH 27.9 (27.0-31.0) pg MCHC 32.5 L (33.0-37.0) g/dL RDW 15.2 H (11.5-14.5) % Plt Count 253 (130-400) K/uL MPV 8.0 (7.2-11.7) fL Neut % (Auto) 58.6 (50.0-75.0) % Lymph % (Auto) 31.7 (20.0-40.0) % [place] % (Auto) 7.8 (0.0-10.0) % Eos % (Auto) 1.2 (0.0-4.0) % Baso % (Auto) 0.7 (0.0-2.0) % Neut # (Auto) 3.5 (1.8-7.0) K/uL Lymph # (Auto) 1.9 (1.0-4.3) K/uL [place] # (Auto) 0.5 (0.0-0.8) K/uL Eos # (Auto) 0.1 (0.0-0.7) K/uL Baso # (Auto) 0.0 (0.0-0.2) K/uL Sodium (132-148) mmol/L Potassium (3.6-5.2) mmol/L Chloride (98-107) mmol/L Carbon Dioxide (22-30) mmol/L Anion Gap (10-20) BUN (7-17) mg/dL Creatinine (0.7-1.2) mg/dL Est GFR ( Amer) Est GFR (Non-Af Amer) Random Glucose (65-105) mg/dL Hemoglobin A1c (4.2-6.5) % Calcium (8.6-10.4) mg/dl Phosphorus (2.5-4.5) mg/dL Magnesium (1.6-2.3) mg/dL Total Bilirubin (0.2-1.3) mg/dL AST (14-36) U/L ALT (9-52) U/L Alkaline Phosphatase (38-126) U/L Total Protein (6.3-8.3) g/dL Albumin (3.5-5.0) g/dL Globulin (2.2-3.9) gm/dL Albumin/Globulin Ratio (1.0-2.1) Free T4 (0.78-2.19) ng/dL Free T3 pg/mL (2.77-5.27) pg/mL TSH 3rd Generation (0.46-4.68) mIU/L Urine Color Yellow (YELLOW) Urine Clarity Clear (Clear) Urine pH 5.0 (5.0-8.0) Ur Specific [place] 1.009 (1.003-1.030) Urine Protein Negative (NEGATIVE) mg/dL Urine Glucose (UA) Normal (Normal) mg/dL Urine Ketones Negative (NEGATIVE) mg/dL Urine Blood Negative (NEGATIVE) Urine Nitrate Positive H (NEGATIVE) Urine Bilirubin Negative (NEGATIVE) Urine Urobilinogen Normal (0.2-1.0) mg/dL Ur Leukocyte Esterase Trace (Negative) [place]/uL Urine WBC (Auto) 3 (0-5) /hpf Urine RBC (Auto) 1 (0-3) /hpf Ur Squamous Epith Cells < 1 (0-5) /hpf Urine Bacteria Occ H (<OCC) Laboratory Results - last 24 hr 09/15/18 09/16/18 09/16/18 10:12 06:19 06:19 WBC 5.9 D RBC 4.30 Hgb 12.0 Hct 36.9 MCV 85.9 MCH 27.9 MCHC 32.5 L RDW 15.2 H Plt Count 253 MPV 8.0 Neut % (Auto) 58.6 Lymph % (Auto) 31.7 [place] % (Auto) 7.8 Eos % (Auto) 1.2 Baso % (Auto) 0.7 Neut # (Auto) 3.5 Lymph # (Auto) 1.9 [place] # (Auto) 0.5 Eos # (Auto) 0.1 Baso # (Auto) 0.0 Sodium 137 Potassium 3.6 Chloride 106 Carbon Dioxide 27 Anion Gap 7 L BUN 11 Creatinine 0.7 Est GFR ( Amer) > 60 Est GFR (Non-Af Amer) > 60 Random Glucose 106 H D Hemoglobin A1c Calcium 9.2 Phosphorus 4.3 Magnesium 2.0 Total Bilirubin 0.9 AST 36 ALT 24 Alkaline Phosphatase 134 H D Total Protein 7.3 Albumin 3.7 Globulin 3.6 Albumin/Globulin Ratio 1.0 Free T4 Free T3 pg/mL 3.33 TSH 3rd Generation 0.11 L Urine Color Yellow Urine Clarity Clear Urine pH 5.0 Ur Specific [place] 1.009 Urine Protein Negative Urine Glucose (UA) Normal Urine Ketones Negative Urine Blood Negative Urine Nitrate Positive H Urine Bilirubin Negative Urine Urobilinogen Normal Ur Leukocyte Esterase Trace Urine WBC (Auto) 3 Urine RBC (Auto) 1 Ur Squamous Epith Cells < 1 Urine Bacteria Occ H 09/16/18 09/16/18 06:19 06:19 WBC RBC Hgb Hct MCV MCH MCHC RDW Plt Count MPV Neut % (Auto) Lymph % (Auto) [place] % (Auto) Eos % (Auto) Baso % (Auto) Neut # (Auto) Lymph # (Auto) [place] # (Auto) Eos # (Auto) Baso # (Auto) Sodium Potassium Chloride Carbon Dioxide Anion Gap BUN Creatinine Est GFR ( Amer) Est GFR (Non-Af Amer) Random Glucose Hemoglobin A1c 6.4 Calcium Phosphorus Magnesium Total Bilirubin AST ALT Alkaline Phosphatase Total Protein Albumin Globulin Albumin/Globulin Ratio Free T4 1.56 Free T3 pg/mL TSH 3rd Generation Urine Color Urine Clarity Urine pH Ur Specific [place] Urine Protein Urine Glucose (UA) Urine Ketones Urine Blood Urine Nitrate Urine Bilirubin Urine Urobilinogen Ur Leukocyte Esterase Urine WBC (Auto) Urine RBC (Auto) Ur Squamous Epith Cells Urine Bacteria Radiology Impressions: Radiology Impressions Chest X-Ray 09/15/18 05:58 IMPRESSION: No focal consolidation. Head CT 09/15/18 13:00 IMPRESSION: Interval slight increased the size of the acute subdural hematoma along the right tentorial leaflet since the prior exam. Otherwise no significant interval changes Fingerstick Blood Sugar Results: 108 Review of Systems - Review of Systems Systems not reviewed;Unavailable: Altered Mental Status Critical Care Progress Note - Nutrition Nutrition: Nutrition Category Date Time Status Diabetic [Consistent Carbohydrate] [DIET] Diets 09/15/18 Lunch Active Assessment/Plan - Assessment and Plan (Free Text) Assessment: 68 y o female with PMhx hypothyroidism, dementia, HLD, DM2 who presented to the ED brought in by police after being found outside near a tree. Reason for ICU consult was for subdural hematoma. Currently being monitored in ICU. Plan: Neuro: -AAOx2 -CT head on admission: acute subdural hematoma along R tentorial leaflet with maximum thickness of 0.2 cm. -Repeat head CT: interval slight increased the size of the acute subdural hematoma along the R tentorial leaflet since the prior exam. Otherwise no significant interval changes -Repeat head CT this am: stable subdural hematoma along R tentorial leaflet -Neurosurgery consulted (Dr. Will), recs appreciated No surgical intervention recommended at this time -Neurology consulted (Dr. Penn), recs appreciated -Hx dementia, cont w/ home med Donepezil Cardio: -HR and BP wnl, pt asymptomatic, cont to monitor -C/w home med Lisinopril daily -C/w home med statin therapy -EKG on admission demonstrates NSR, possible LVH, prolonged QT -CXR on admission: no focal consolidation GI: -Diabetic diet -Protonix daily -No acute issues at this time Renal: -BUN/Cr 11/0.7, cont to monitor -Trend I's/O's ID: -Leukocytosis resolved -Afebrile, no tachycardia -Cont to trend, no anbx indicated at this time -Blood cx NGTD, urine cx pending -CXR neg for consolidation Endo: -Hx DM2 Cont with home med Metformin ISS-med Fingersticks achs Hypoglycemic protocol A1c 6.4 -Hx hypothyroidism s/p thyroidectomy C/w home med Synthroid TSH 0.11 low, free T3 and T4 wnl, possible subclinical hypothyroidism, may need repeat studies outpatient PPX: -Protonix -SCD, pharmacologic DVT ppx contraindicated 2/2 cranial bleed -OT/PT evals ordered Dispo: Will continue to monitor in ICU. If pt continues to be stable, can be downgraded from ICU to telemetry floor. Pt seen, examined with, and plan discussed with Dr. Zuniga, attending physician. Kyler Bettencourt DO PGY-1, Manager Environmental Health Pager #[phone]
[2018-09-16] MEDS: Pantoprazole 40 mg EC Tab PO SCH (10:00)
--- NOTE | 2018-09-16 11:04 | CP.PCM.CON ---
History of Present Illness - History of Present Illness History of Present Illness: Consult note for Dr. Penn. 68 year old female with PMHx of DM, HLD, dementia, syphilis (treated one year ago), and hypoparathyroidism who was found confused, wandering outside with an abrasion to her R face and was subsequently brought to ED yesterday by EMS and police. History was obtained via chart review and family as patient has dementia. Patient lives with family and was noticed to not be in her room sometime between 4-5am yesterday, patient arrived to ED at approximately 5:54am. As per family, patient has an unsteady gait at baseline and experiences falls 3x per month. Initial CT head showed acute subdural hematoma at the R tentoral leaflet with a maximum thickness of 0.2cm, mild volume loss and chronic microvascular changes. Repeat head CT 6 hours later showed slight increase in size of the SDH. Neurosurgery was consulted and determined no surgical intervention was indicated. Repeat CT head this morning shows stable SDH. Today, patient only complains of abrasion to R nose and orbit and b/l knees. Denies dizziness, generalized headache, focal weakness or numbness, slurred speech, change in vision, nausea, vomiting, and any other symptoms. PMhx: hypoparathyroidism, hypothyroid, dementia, syphilis (treated with PNC and doxycycline in 2018), HLD, DM2 PSurgHx: parathyroidectomy (2018) Allergies: NKDA as per family member Fam hx: Mother had DM Soc hx: denies smoking, EtOH or illicit drug use, lives with family Review of Systems - Review of Systems All systems: reviewed and no additional remarkable complaints except (as per HPI) Past Patient History - Infectious Disease Hx of Infectious Diseases: None - Past Medical History & Family History Past Medical History?: Yes - Past Social History Smoking Status: Unknown If Ever Smoked - CARDIAC Hx Hypercholesterolemia: Yes - PULMONARY Hx Respiratory Disorders: No - NEUROLOGICAL Hx Neurological Disorder: Yes Hx Alzheimer's Disease: Yes Hx Dementia: Yes - HEENT Hx HEENT Problems: No - RENAL Hx Chronic Kidney Disease: No - ENDOCRINE/METABOLIC Hx Endocrine Disorders: Yes Hx Diabetes Mellitus Type 2: Yes Hx Hypothyroidism: Yes - HEMATOLOGICAL/ONCOLOGICAL Hx Blood Disorders: No - INTEGUMENTARY Hx Dermatological Problems: No - MUSCULOSKELETAL/RHEUMATOLOGICAL Hx Musculoskeletal Disorders: No Hx Falls: Yes Hx Unsteady Gait: Yes - GASTROINTESTINAL Hx Gastrointestinal Disorders: No - GENITOURINARY/GYNECOLOGICAL Hx Genitourinary Disorders: No - PSYCHIATRIC Hx Psychophysiologic Disorder: No Hx Substance Use: No - SURGICAL HISTORY Hx Surgeries: Yes Hx Parathyroidectomy: Yes - ANESTHESIA Hx Anesthesia: Yes Hx Anesthesia Reactions: No Hx Malignant Hyperthermia: No Has any member of the family had a problem w/ anesthesia?: No Meds Allergies/Adverse Reactions: Allergies Allergy/AdvReac Type Severity Reaction Status Date / Time Penicillins Allergy Verified 09/15/18 06:40 - Medications Medications: Current Medications Donepezil HCl (Aricept) 10 mg PO HS [facility] Last Admin: 09/15/18 22:22 Dose: 10 mg Insulin Human Regular (Novolin R) 0 unit SC [facility]; Protocol Last Admin: 09/16/18 08:25 Dose: Not Given Levothyroxine Sodium (Synthroid) 125 mcg PO DAILY@0630 [facility] Last Admin: 09/16/18 08:25 Dose: 125 mcg Lisinopril (Zestril) 2.5 mg PO DAILY [facility] Last Admin: 09/16/18 10:00 Dose: 2.5 mg Metformin HCl (Glucophage) 500 mg PO DIN [facility] Pantoprazole Sodium (Protonix Ec Tab) 40 mg PO DAILY [facility] Last Admin: 09/16/18 10:00 Dose: 40 mg Rosuvastatin Calcium (Crestor) 20 mg PO [facility] Last Admin: 09/15/18 22:22 Dose: 20 mg Physical Exam - Head Exam Additional comments: Swelling and abrasion to R orbit and nose. - Eye Exam Eye Exam: EOMI, Normal appearance, PERRL Pupil Exam: NORMAL ACCOMODATION - ENT Exam ENT Exam: Mucous Membranes Moist - Neck Exam Neck exam: Positive for: Normal Inspection - Respiratory Exam Respiratory Exam: NORMAL BREATHING PATTERN. absent: Respiratory Distress - Cardiovascular Exam Cardiovascular Exam: REGULAR RHYTHM, +S1, +S2 - GI/Abdominal Exam GI & Abdominal Exam: Soft. absent: Guarding, Rebound, Tenderness - Extremities Exam Extremities exam: Positive for: pedal pulses present. Negative for: calf tenderness, normal inspection (abrasions to b/l knees) Additional comments: moves all extremities. - Neurological Exam Additional comments: Awake, alert, oriented to person and place. EOMI. Speech is not slurred. CN2-12 intact. Sensation intact, Muscle strength 5/5 in all extremities, toes downgoing, finger to nose normal. - Psychiatric Exam Psychiatric exam: Normal Affect, Normal Mood - Skin Skin Exam: Abrasion (to face and knees, otherwise normal) Results - Vital Signs Recent Vital Signs: Last Vital Signs Temp 98.1 F 09/16/18 08:00 Pulse 57 L 09/16/18 08:00 Resp 17 09/16/18 08:00 BP 128/48 L 09/16/18 07:57 Pulse Ox 100 09/16/18 08:00 - Labs Result Diagrams: 09/16/18 06:19 09/16/18 06:19 Labs: Laboratory Results - last 24 hr 09/16/18 09/16/18 09/16/18 06:19 06:19 06:19 WBC 5.9 D RBC 4.30 Hgb 12.0 Hct 36.9 MCV 85.9 MCH 27.9 MCHC 32.5 L RDW 15.2 H Plt Count 253 MPV 8.0 Neut % (Auto) 58.6 Lymph % (Auto) 31.7 [place] % (Auto) 7.8 Eos % (Auto) 1.2 Baso % (Auto) 0.7 Neut # (Auto) 3.5 Lymph # (Auto) 1.9 [place] # (Auto) 0.5 Eos # (Auto) 0.1 Baso # (Auto) 0.0 Sodium 137 Potassium 3.6 Chloride 106 Carbon Dioxide 27 Anion Gap 7 L BUN 11 Creatinine 0.7 Est GFR ( Amer) > 60 Est GFR (Non-Af Amer) > 60 Random Glucose 106 H D Hemoglobin A1c Calcium 9.2 Phosphorus 4.3 Magnesium 2.0 Total Bilirubin 0.9 AST 36 ALT 24 Alkaline Phosphatase 134 H D Total Protein 7.3 Albumin 3.7 Globulin 3.6 Albumin/Globulin Ratio 1.0 Free T4 1.56 Free T3 pg/mL 3.33 TSH 3rd Generation 0.11 L 09/16/18 06:19 WBC RBC Hgb Hct MCV MCH MCHC RDW Plt Count MPV Neut % (Auto) Lymph % (Auto) [place] % (Auto) Eos % (Auto) Baso % (Auto) Neut # (Auto) Lymph # (Auto) [place] # (Auto) Eos # (Auto) Baso # (Auto) Sodium Potassium Chloride Carbon Dioxide Anion Gap BUN Creatinine Est GFR ( Amer) Est GFR (Non-Af Amer) Random Glucose Hemoglobin A1c 6.4 Calcium Phosphorus Magnesium Total Bilirubin AST ALT Alkaline Phosphatase Total Protein Albumin Globulin Albumin/Globulin Ratio Free T4 Free T3 pg/mL TSH 3rd Generation Assessment & Plan - Assessment and Plan (Free Text) Assessment: 68 year old female with head trauma and SDH on CT Plan: CT head: acute subdural hematoma at the R tentoral leaflet with a maximum thickness of 0.2cm, mild volume loss and chronic microvascular changes. Repeat CT Head 09/15: slight increase in size of the SDH. Neurosurgery was consulted and determined no surgical intervention was indicated. Repeat CT head this morning shows stable SDH. Repeat CT Head 09/16: stable SDH along R tenoral leaflet -Patient cleared to downgrade from ICU from neurological standpoint. Discussed with Dr. Isamar Flowers, PGY-1
--- NOTE | 2018-09-16 14:00 | CT ---
Date of service: 09/16/2018 PROCEDURE: CT HEAD WITHOUT CONTRAST. HISTORY: eval for interval change COMPARISON: 09/15/2018 TECHNIQUE: Axial computed tomography images were obtained through the head/brain without intravenous contrast. Radiation dose: Total exam DLP = 962.86 mGy-cm. This CT exam was performed using one or more of the following dose reduction techniques: Automated exposure control, adjustment of the mA and/or kV according to patient size, and/or use of iterative reconstruction technique. FINDINGS: HEMORRHAGE: Stable subdural hematoma along the right tentorial leaflet. BRAIN: No mass effect or edema. No atrophy or chronic microvascular ischemic changes. VENTRICLES: Unremarkable. No hydrocephalus. CALVARIUM: Unremarkable. PARANASAL SINUSES: Unremarkable as visualized. No significant inflammatory changes. MASTOID AIR CELLS: Unremarkable as visualized. No inflammatory changes. OTHER FINDINGS: None. IMPRESSION: Stable subdural hematoma along the right tentorial leaflet.
[2018-09-16] MEDS: Bacitracin 500 Units/gm Oint Foilpak UD TOP PRN (17:37)
--- NOTE | 2018-09-16 18:04 | CP.PCM.PN ---
Subjective - Date & Time of Evaluation Date of Evaluation: 09/16/18 Time of Evaluation: 13:45 - Subjective Subjective: clinically same Objective - Vital Signs/Intake and Output Vital Signs (last 24 hours): Temp Pulse Resp BP Pulse Ox 98.4 F 69 22 99/44 L 95 09/16/18 16:00 09/16/18 15:00 09/16/18 15:00 09/16/18 14:57 09/16/18 16:00 Intake and Output: 09/16/18 09/16/18 06:59 18:59 Intake Total 400 660 Output Total 350 450 Balance 50 210 - Medications Medications: Current Medications Bacitracin (Bacitracin) 1 ea TOP Q4H PRN PRN Reason: Dry skin Last Admin: 09/16/18 17:37 Dose: 1 ea Donepezil HCl (Aricept) 10 mg PO [facility] Last Admin: 09/15/18 22:22 Dose: 10 mg Insulin Human Regular (Novolin R) 0 unit SC [facility]; Protocol Last Admin: 09/16/18 16:30 Dose: Not Given Levothyroxine Sodium (Synthroid) 125 mcg PO DAILY@0630 [facility] Last Admin: 09/16/18 08:25 Dose: 125 mcg Lisinopril (Zestril) 2.5 mg PO DAILY [facility] Last Admin: 09/16/18 10:00 Dose: 2.5 mg Metformin HCl (Glucophage) 500 mg PO DAILY@1700 [facility] Last Admin: 09/16/18 17:45 Dose: 500 mg Pantoprazole Sodium (Protonix Ec Tab) 40 mg PO DAILY [facility] Last Admin: 09/16/18 10:00 Dose: 40 mg Rosuvastatin Calcium (Crestor) 20 mg PO [facility] Last Admin: 09/15/18 22:22 Dose: 20 mg - Labs Labs: 09/16/18 06:19 09/16/18 06:19 PT 11.5 SECONDS (9.7-12.2) 09/15/18 06:22 INR 1.1 09/15/18 06:22 APTT 27 SECONDS (21-34) 09/15/18 06:22 - Constitutional Appears: Well - Head Exam Head Exam: ATRAUMATIC, NORMAL INSPECTION, NORMOCEPHALIC - Eye Exam Eye Exam: EOMI, Normal appearance, PERRL Pupil Exam: NORMAL ACCOMODATION, PERRL - ENT Exam ENT Exam: Mucous Membranes Moist, Normal Exam - Neck Exam Neck Exam: Full ROM, Normal Inspection. absent: Lymphadenopathy - Respiratory Exam Respiratory Exam: Decreased Breath Sounds - Cardiovascular Exam Cardiovascular Exam: REGULAR RHYTHM, +S1, +S2 - GI/Abdominal Exam GI & Abdominal Exam: Soft, Diminished Bowel Sounds - Rectal Exam Rectal Exam: Deferred
[2018-09-17 06:22] LABS: BASO % 0.6 % (0.0-2.0); EOS # 0.1 K/uL (0.0-0.7); EOS % 2.4 % (0.0-4.0); HEMOGLOBIN 11.9 g/dL (11.0-16.0); LYMPH # 1.8 K/uL (1.0-4.3); LYMPH % 29.7 % (20.0-40.0); MEAN CORPUSCULAR HEMOGLOBIN 27.8 pg (27.0-31.0); MEAN PLATELET VOLUME 8.3 fL (7.2-11.7); MONO # 0.5 K/uL (0.0-0.8); MONO % 7.9 % (0.0-10.0); NEUT # 3.6 K/uL (1.8-7.0); NEUT % 59.4 % (50.0-75.0); NRBC % 0.1 % (0.0-2.0); RBC 4.28 Mil/uL (3.80-5.20); RED CELL DISTRIBUTION WIDTH 15.9 % (11.5-14.5); WHITE BLOOD COUNT 6.1 K/uL (4.8-10.8)
[2018-09-17] MEDS: Levothyroxine 125 MCG TAB PO SCH (06:35)
[2018-09-17 06:48] LABS: ALBUMIN 2.9 g/dL (3.5-5.0); ALT/SGPT 14 U/L (9-52); AST/SGOT 28 U/L (14-36); BLOOD UREA NITROGEN 13 mg/dL (7-17); CALCIUM 7.6 mg/dl (8.6-10.4); GFR NON-AFRICAN AMERICAN > 60
[2018-09-17] MEDS: (Novolin R) Insulin Human Regular 100 units/ml vial SC SCH ×4 (07:30→21:08)
[2018-09-17] MEDS: Pantoprazole 40 mg EC Tab PO SCH (09:15)
[2018-09-17] MEDS: Moxifloxacin IV 400mg/250ml NS 400 MG/250 ML BAG IVPB SCH (10:00)
[2018-09-17 14:30] VITALS: RESP 20
--- NOTE | 2018-09-17 19:30 | CP.PCM.PN ---
Subjective - Date & Time of Evaluation Date of Evaluation: 09/17/18 Time of Evaluation: 08:00 - Subjective Subjective: clinically same Objective - Vital Signs/Intake and Output Vital Signs (last 24 hours): Temp Pulse Resp BP Pulse Ox 98.1 F 69 20 102/66 96 09/17/18 15:00 09/17/18 15:00 09/17/18 15:00 09/17/18 15:00 09/17/18 15:00 - Medications Medications: Current Medications Bacitracin (Bacitracin) 1 ea TOP Q4H PRN PRN Reason: Dry skin Last Admin: 09/16/18 17:37 Dose: 1 ea Donepezil HCl (Aricept) 10 mg PO HS [facility] Last Admin: 09/16/18 22:16 Dose: 10 mg Moxifloxacin HCl (Avelox Iv 400mg/250ml Ns) 400 mg in 250 mls @ 167 mls/hr IVPB Q24H [facility]; Protocol Last Admin: 09/17/18 10:00 Dose: 167 mls/hr Insulin Human Regular (Novolin R) 0 unit SC ACHS [facility]; Protocol Last Admin: 09/17/18 17:18 Dose: Not Given Levothyroxine Sodium (Synthroid) 125 mcg PO DAILY@0630 [facility] Last Admin: 09/17/18 06:35 Dose: 125 mcg Lisinopril (Zestril) 2.5 mg PO DAILY [facility] Last Admin: 09/17/18 09:15 Dose: 2.5 mg Metformin HCl (Glucophage) 500 mg PO DAILY@1700 [facility] Last Admin: 09/17/18 17:18 Dose: Not Given Pantoprazole Sodium (Protonix Ec Tab) 40 mg PO DAILY [facility] Last Admin: 09/17/18 09:15 Dose: 40 mg Rosuvastatin Calcium (Crestor) 20 mg PO HS [facility] Last Admin: 09/16/18 22:16 Dose: 20 mg - Labs Labs: 09/17/18 06:10 09/17/18 06:10 PT 11.5 SECONDS (9.7-12.2) 09/15/18 06:22 INR 1.1 09/15/18 06:22 APTT 27 SECONDS (21-34) 09/15/18 06:22 - Constitutional Appears: Well - Head Exam Head Exam: ATRAUMATIC, NORMAL INSPECTION, NORMOCEPHALIC - Eye Exam Eye Exam: EOMI, Normal appearance, PERRL Pupil Exam: NORMAL ACCOMODATION, PERRL - ENT Exam ENT Exam: Mucous Membranes Moist, Normal Exam - Neck Exam Neck Exam: Full ROM, Normal Inspection. absent: Lymphadenopathy - Respiratory Exam Respiratory Exam: Decreased Breath Sounds - Cardiovascular Exam Cardiovascular Exam: REGULAR RHYTHM, +S1, +S2 - GI/Abdominal Exam GI & Abdominal Exam: Soft, Diminished Bowel Sounds - Rectal Exam Rectal Exam: Deferred
[2018-09-18] MEDS: Levothyroxine 125 MCG TAB PO SCH (06:31)
[2018-09-18 07:28] LABS: BASO % 0.6 % (0.0-2.0); EOS # 0.2 K/uL (0.0-0.7); EOS % 3.2 % (0.0-4.0); HEMOGLOBIN 11.9 g/dL (11.0-16.0); LYMPH # 1.7 K/uL (1.0-4.3); LYMPH % 28.8 % (20.0-40.0); MEAN CORPUSCULAR HEMOGLOBIN 28.4 pg (27.0-31.0); MEAN CORPUSCULAR HGB CONC 33.5 g/dL (33.0-37.0); MONO # 0.5 K/uL (0.0-0.8); MONO % 8.9 % (0.0-10.0); NEUT # 3.4 K/uL (1.8-7.0); NEUT % 58.5 % (50.0-75.0); RBC 4.19 Mil/uL (3.80-5.20); RED CELL DISTRIBUTION WIDTH 15.4 % (11.5-14.5); WHITE BLOOD COUNT 5.8 K/uL (4.8-10.8)
[2018-09-18] MEDS: (Novolin R) Insulin Human Regular 100 units/ml vial SC SCH ×4 (07:59→21:45)
[2018-09-18 08:03] LABS: ALBUMIN 3.4 g/dL (3.5-5.0); ALT/SGPT 14 U/L (9-52); AST/SGOT 26 U/L (14-36); BLOOD UREA NITROGEN 17 mg/dL (7-17); CALCIUM 9.4 mg/dl (8.6-10.4); GFR NON-AFRICAN AMERICAN > 60
[2018-09-18] MEDS: Bacitracin 500 Units/gm Oint Foilpak UD TOP PRN (10:41)
[2018-09-18] MEDS: Pantoprazole 40 mg EC Tab PO SCH (10:42)
[2018-09-18] MEDS: Moxifloxacin IV 400mg/250ml NS 400 MG/250 ML BAG IVPB SCH (10:48)
--- NOTE | 2018-09-18 17:38 | CP.PCM.PN ---
Subjective - Date & Time of Evaluation Date of Evaluation: 09/18/18 Time of Evaluation: 07:45 - Subjective Subjective: clinically same Objective - Vital Signs/Intake and Output Vital Signs (last 24 hours): Temp Pulse Resp BP Pulse Ox 97.6 F 68 20 114/72 97 09/18/18 16:10 09/18/18 16:10 09/18/18 16:10 09/18/18 16:10 09/18/18 16:10 Intake and Output: 09/18/18 09/18/18 06:59 18:59 Intake Total 1500 Balance 1500 - Medications Medications: Current Medications Bacitracin (Bacitracin) 1 ea TOP Q4H PRN PRN Reason: Dry skin Last Admin: 09/18/18 10:41 Dose: 1 ea Donepezil HCl (Aricept) 10 mg PO HS [facility] Last Admin: 09/17/18 21:42 Dose: 10 mg Moxifloxacin HCl (Avelox Iv 400mg/250ml Ns) 400 mg in 250 mls @ 167 mls/hr IVPB Q24H [facility]; Protocol Last Admin: 09/18/18 10:48 Dose: 167 mls/hr Insulin Human Regular (Novolin R) 0 unit SC ACHS [facility]; Protocol Last Admin: 09/18/18 17:23 Dose: Not Given Levothyroxine Sodium (Synthroid) 125 mcg PO DAILY@0630 [facility] Last Admin: 09/18/18 06:31 Dose: 125 mcg Lisinopril (Zestril) 2.5 mg PO DAILY [facility] Last Admin: 09/18/18 10:42 Dose: 2.5 mg Metformin HCl (Glucophage) 500 mg PO DAILY@1700 [facility] Last Admin: 09/18/18 17:23 Dose: 500 mg Pantoprazole Sodium (Protonix Ec Tab) 40 mg PO DAILY [facility] Last Admin: 09/18/18 10:42 Dose: 40 mg Rosuvastatin Calcium (Crestor) 20 mg PO HS [facility] Last Admin: 09/17/18 21:42 Dose: 20 mg - Labs Labs: 09/18/18 07:10 09/18/18 07:10 PT 11.5 SECONDS (9.7-12.2) 09/15/18 06:22 INR 1.1 09/15/18 06:22 APTT 27 SECONDS (21-34) 09/15/18 06:22 - Constitutional Appears: Well - Head Exam Head Exam: ATRAUMATIC, NORMAL INSPECTION, NORMOCEPHALIC - Eye Exam Eye Exam: EOMI, Normal appearance, PERRL Pupil Exam: NORMAL ACCOMODATION, PERRL - ENT Exam ENT Exam: Mucous Membranes Moist, Normal Exam - Neck Exam Neck Exam: Full ROM, Normal Inspection. absent: Lymphadenopathy - Respiratory Exam Respiratory Exam: Decreased Breath Sounds - Cardiovascular Exam Cardiovascular Exam: REGULAR RHYTHM, +S1, +S2 - GI/Abdominal Exam GI & Abdominal Exam: Soft, Diminished Bowel Sounds - Rectal Exam Rectal Exam: Deferred
[2018-09-19] MEDS: Levothyroxine 125 MCG TAB PO SCH (05:31)
[2018-09-19] MEDS: (Novolin R) Insulin Human Regular 100 units/ml vial SC SCH ×4 (08:02→22:00)
[2018-09-19 08:59] LABS: BASO % 0.8 % (0.0-2.0); EOS # 0.2 K/uL (0.0-0.7); EOS % 3.5 % (0.0-4.0); HEMOGLOBIN 12.3 g/dL (11.0-16.0); LYMPH # 1.5 K/uL (1.0-4.3); LYMPH % 29.2 % (20.0-40.0); MEAN CELL VOLUME 85.7 fL (81.0-99.0); MEAN CORPUSCULAR HEMOGLOBIN 28.7 pg (27.0-31.0); MEAN CORPUSCULAR HGB CONC 33.5 g/dL (33.0-37.0); MONO # 0.5 K/uL (0.0-0.8); MONO % 8.9 % (0.0-10.0); NEUT % 57.6 % (50.0-75.0); NRBC % 0.1 % (0.0-2.0); RBC 4.3 Mil/uL (3.80-5.20); RED CELL DISTRIBUTION WIDTH 15.7 % (11.5-14.5); WHITE BLOOD COUNT 5.2 K/uL (4.8-10.8)
[2018-09-19 09:11] LABS: ALB/GLOB RATIO 1.1 (1.0-2.1); ALBUMIN 3.7 g/dL (3.5-5.0); ALT/SGPT 14 U/L (9-52); AST/SGOT 24 U/L (14-36); BLOOD UREA NITROGEN 21 mg/dL (7-17); CALCIUM 9.4 mg/dl (8.6-10.4); GFR NON-AFRICAN AMERICAN 55
[2018-09-19] MEDS: Pantoprazole 40 mg EC Tab PO SCH (09:29)
[2018-09-19] MEDS: Moxifloxacin IV 400mg/250ml NS 400 MG/250 ML BAG IVPB SCH (09:44)
--- NOTE | 2018-09-19 15:49 | CP.PCM.PN ---
Subjective - Date & Time of Evaluation Date of Evaluation: 09/19/18 Time of Evaluation: 07:45 - Subjective Subjective: clinically same Objective - Vital Signs/Intake and Output Vital Signs (last 24 hours): Temp Pulse Resp BP Pulse Ox 98.0 F 71 20 120/73 96 09/19/18 08:28 09/19/18 08:28 09/19/18 08:28 09/19/18 08:28 09/19/18 08:28 Intake and Output: 09/19/18 09/19/18 06:59 18:59 Intake Total 250 Balance 250 - Medications Medications: Current Medications Bacitracin (Bacitracin) 1 ea TOP Q4H PRN PRN Reason: Dry skin Last Admin: 09/18/18 10:41 Dose: 1 ea Donepezil HCl (Aricept) 10 mg PO HS [facility] Last Admin: 09/18/18 21:45 Dose: 10 mg Moxifloxacin HCl (Avelox Iv 400mg/250ml Ns) 400 mg in 250 mls @ 167 mls/hr IVPB Q24H [facility]; Protocol Last Admin: 09/19/18 09:44 Dose: 167 mls/hr Insulin Human Regular (Novolin R) 0 unit SC ACHS [facility]; Protocol Last Admin: 09/19/18 11:50 Dose: Not Given Levothyroxine Sodium (Synthroid) 125 mcg PO DAILY@0630 [facility] Last Admin: 09/19/18 05:31 Dose: 125 mcg Lisinopril (Zestril) 2.5 mg PO DAILY [facility] Last Admin: 09/19/18 09:29 Dose: 2.5 mg Metformin HCl (Glucophage) 500 mg PO DAILY@1700 [facility] Last Admin: 09/18/18 17:23 Dose: 500 mg Pantoprazole Sodium (Protonix Ec Tab) 40 mg PO DAILY [facility] Last Admin: 09/19/18 09:29 Dose: 40 mg Rosuvastatin Calcium (Crestor) 20 mg PO HS [facility] Last Admin: 09/18/18 21:45 Dose: 20 mg - Labs Labs: 09/19/18 08:25 09/19/18 08:25 PT 11.5 SECONDS (9.7-12.2) 09/15/18 06:22 INR 1.1 09/15/18 06:22 APTT 27 SECONDS (21-34) 09/15/18 06:22 - Constitutional Appears: Well - Head Exam Head Exam: ATRAUMATIC, NORMAL INSPECTION, NORMOCEPHALIC - Eye Exam Eye Exam: EOMI, Normal appearance, PERRL Pupil Exam: NORMAL ACCOMODATION, PERRL - ENT Exam ENT Exam: Mucous Membranes Moist, Normal Exam - Neck Exam Neck Exam: Full ROM, Normal Inspection. absent: Lymphadenopathy - Respiratory Exam Respiratory Exam: Decreased Breath Sounds - Cardiovascular Exam Cardiovascular Exam: REGULAR RHYTHM, +S1, +S2 - GI/Abdominal Exam GI & Abdominal Exam: Soft, Diminished Bowel Sounds - Rectal Exam Rectal Exam: Deferred - Exam Speculum exam: NORMAL SPECULUM EXAM
[2018-09-20] MEDS: Levothyroxine 125 MCG TAB PO SCH (05:41)
[2018-09-20 07:28] LABS: BASO % 0.6 % (0.0-2.0); EOS # 0.2 K/uL (0.0-0.7); EOS % 2.9 % (0.0-4.0); HEMOGLOBIN 11.9 g/dL (11.0-16.0); LYMPH # 1.9 K/uL (1.0-4.3); LYMPH % 29.3 % (20.0-40.0); MEAN CELL VOLUME 86.3 fL (81.0-99.0); MEAN CORPUSCULAR HEMOGLOBIN 28.6 pg (27.0-31.0); MEAN CORPUSCULAR HGB CONC 33.1 g/dL (33.0-37.0); MEAN PLATELET VOLUME 7.9 fL (7.2-11.7); MONO # 0.6 K/uL (0.0-0.8); MONO % 9.7 % (0.0-10.0); NEUT # 3.7 K/uL (1.8-7.0); NEUT % 57.5 % (50.0-75.0); NRBC % 0.1 % (0.0-2.0); RBC 4.16 Mil/uL (3.80-5.20); RED CELL DISTRIBUTION WIDTH 15.5 % (11.5-14.5); WHITE BLOOD COUNT 6.4 K/uL (4.8-10.8)
[2018-09-20] MEDS: (Novolin R) Insulin Human Regular 100 units/ml vial SC SCH ×4 (08:15→21:36)
[2018-09-20 08:19] LABS: ALB/GLOB RATIO 1.1 (1.0-2.1); ALBUMIN 3.5 g/dL (3.5-5.0); ALT/SGPT 21 U/L (9-52); AST/SGOT 25 U/L (14-36); BLOOD UREA NITROGEN 20 mg/dL (7-17); CALCIUM 9.2 mg/dl (8.6-10.4); GFR NON-AFRICAN AMERICAN > 60
[2018-09-20] MEDS: Pantoprazole 40 mg EC Tab PO SCH (09:10)
[2018-09-20] MEDS: Moxifloxacin IV 400mg/250ml NS 400 MG/250 ML BAG IVPB SCH (11:01)
--- NOTE | 2018-09-20 19:59 | CP.PCM.PN ---
Subjective - Date & Time of Evaluation Date of Evaluation: 09/20/18 Time of Evaluation: 07:30 - Subjective Subjective: clinically same Objective - Vital Signs/Intake and Output Vital Signs (last 24 hours): Temp Pulse Resp BP Pulse Ox 98.1 F 63 20 121/70 96 09/20/18 15:00 09/20/18 15:00 09/20/18 15:00 09/20/18 15:00 09/20/18 15:00 Intake and Output: 09/20/18 09/21/18 18:59 06:59 Intake Total 750 Balance 750 - Medications Medications: Current Medications Bacitracin (Bacitracin) 1 ea TOP Q4H PRN PRN Reason: Dry skin Last Admin: 09/18/18 10:41 Dose: 1 ea Donepezil HCl (Aricept) 10 mg PO HS [facility] Last Admin: 09/19/18 21:15 Dose: 10 mg Moxifloxacin HCl (Avelox Iv 400mg/250ml Ns) 400 mg in 250 mls @ 167 mls/hr IVPB Q24H [facility]; Protocol Last Admin: 09/20/18 11:01 Dose: 167 mls/hr Insulin Human Regular (Novolin R) 0 unit SC ACHS [facility]; Protocol Last Admin: 09/20/18 17:40 Dose: Not Given Levothyroxine Sodium (Synthroid) 125 mcg PO DAILY@0630 [facility] Last Admin: 09/20/18 05:41 Dose: 125 mcg Lisinopril (Zestril) 2.5 mg PO DAILY [facility] Last Admin: 09/20/18 09:09 Dose: 2.5 mg Metformin HCl (Glucophage) 500 mg PO DAILY@1700 [facility] Last Admin: 09/20/18 17:40 Dose: 500 mg Pantoprazole Sodium (Protonix Ec Tab) 40 mg PO DAILY [facility] Last Admin: 09/20/18 09:10 Dose: 40 mg Rosuvastatin Calcium (Crestor) 20 mg PO HS [facility] Last Admin: 09/19/18 21:15 Dose: 20 mg - Labs Labs: 09/20/18 07:15 09/20/18 07:15 PT 11.5 SECONDS (9.7-12.2) 09/15/18 06:22 INR 1.1 09/15/18 06:22 APTT 27 SECONDS (21-34) 09/15/18 06:22 - Constitutional Appears: Well - Head Exam Head Exam: ATRAUMATIC, NORMAL INSPECTION, NORMOCEPHALIC - Eye Exam Eye Exam: EOMI, Normal appearance, PERRL Pupil Exam: NORMAL ACCOMODATION, PERRL - ENT Exam ENT Exam: Mucous Membranes Moist, Normal Exam - Neck Exam Neck Exam: Full ROM, Normal Inspection. absent: Lymphadenopathy - Respiratory Exam Respiratory Exam: Decreased Breath Sounds - Cardiovascular Exam Cardiovascular Exam: REGULAR RHYTHM, +S1, +S2 - GI/Abdominal Exam GI & Abdominal Exam: Soft, Diminished Bowel Sounds - Rectal Exam Rectal Exam: Deferred
[2018-09-21] MEDS: Levothyroxine 125 MCG TAB PO SCH (05:39)
[2018-09-21] MEDS: (Novolin R) Insulin Human Regular 100 units/ml vial SC SCH ×2 (07:26→11:16)
[2018-09-21 07:56] VITALS: BP 102/61; PULSE 63; TEMP 97.1; O2SAT 97
[2018-09-21] MEDS: Pantoprazole 40 mg EC Tab PO SCH (09:47)
[2018-09-21] MEDS: Moxifloxacin IV 400mg/250ml NS 400 MG/250 ML BAG IVPB SCH (09:47)
[2018-09-21] MEDS ORDERED: Pneumococcal 23-Valent Vaccine IM ONE (11:45)
[2018-09-21] MEDS ORDERED: Influenza Vaccine 60 mcg/0.5 mL SYR (4YR UP) IM ONE (11:45)
--- NOTE | 2018-09-21 17:13 | CP.PCM.PN ---
Subjective - Date & Time of Evaluation Date of Evaluation: 09/21/18 Time of Evaluation: 11:00 - Subjective Subjective: alert, awake, no sob or distress, NAD. Objective - Vital Signs/Intake and Output Vital Signs (last 24 hours): Temp Pulse Resp BP Pulse Ox 97.1 F L 63 20 102/61 97 09/21/18 07:00 09/21/18 07:00 09/21/18 07:00 09/21/18 07:00 09/21/18 07:00 Intake and Output: 09/21/18 09/21/18 06:59 18:59 Intake Total 480 Balance 480 - Labs Labs: 09/20/18 07:15 09/20/18 07:15 PT 11.5 SECONDS (9.7-12.2) 09/15/18 06:22 INR 1.1 09/15/18 06:22 APTT 27 SECONDS (21-34) 09/15/18 06:22 Assessment and Plan - Assessment and Plan (Free Text) Assessment: 68 year old female admitted with subdural hematoma, seen and examined. Ion, orientedx3, cleared by neuro, discussed with DR Meron Peguero, plan to discharge home with home care and home PT. Family at the bedside, advised to follow up with PMD in 1 week.
== END 2018-09-21 11:53 | disposition home or self-care (01) | DRG 761 ==
LOC: C.ER 05:53 → EDBD 05:53 → C.9I 08:24 → C.3T 09-17 14:16
PROVIDERS: ADMIT Internal Medicine Nephrology; ATTEND Internal Medicine Nephrology
DX: S06.5X9A Traumatic subdural hemorrhage with loss of consciousness of unspecified duration, initial encounter (principal); S00.81XA Abrasion of other part of head, initial encounter; G30.9 Alzheimer's disease, unspecified; F02.80 Dementia in other diseases classified elsewhere, unspecified severity, without behavioral disturbance, psychotic disturbance, mood disturbance, and anxiety; E89.2 Postprocedural hypoparathyroidism; E11.9 Type 2 diabetes mellitus without complications; E78.5 Hyperlipidemia, unspecified; E78.00 Pure hypercholesterolemia, unspecified; W19.XXXA Unspecified fall, initial encounter; T68.XXXA Hypothermia, initial encounter; X31.XXXA Exposure to excessive natural cold, initial encounter; Z91.83 Wandering in diseases classified elsewhere; Y92.89 Other specified places as the place of occurrence of the external cause; Z91.81 History of falling; Z86.19 Personal history of other infectious and parasitic diseases; Z79.84 Long term (current) use of oral hypoglycemic drugs; Z83.3 Family history of diabetes mellitus; Z88.0 Allergy status to penicillin